=== PATIENT | female | born 1950 | race Caucasian/White ===

== ENCOUNTER 2016-05-13 06:45 | Inpatient (IN) ==
--- NOTE | 2016-05-10 20:28 | Discharge Summary ---
<Camila Lemus Vasiliy - Last Filed: 05/13/16 08:46> - Discharge Diagnosis (1) Arthritis of knee, left Priority: Primary Status: Acute (2) GERD (gastroesophageal reflux disease) Priority: Secondary Status: Chronic Qualifiers: Esophagitis presence: esophagitis presence not specified Qualified Code(s) : K21.9 - Gastro-esophageal reflux disease without esophagitis (3) Obesity Priority: Secondary Status: Chronic Qualifiers: Obesity type: unspecified obesity type Obesity severity: morbid Qualified Code(s): E66.01 - Morbid (severe) obesity due to excess calories - Discharge Medications Home Medications: OxyCODONE Immed Rel [Roxicodone 5 MG] 5 - 10 mg PO Q6HR PRN #40 tablet 05/12/16 [Rx] Aspirin Enteric Coated [Aspirin EC] 325 mg PO DAILY #21 tablet.dr 05/13/16 [Rx] Duloxetine [Cymbalta] 20 mg PO HS 05/13/16 [History] Metoclopramide [Reglan] 10 mg PO TID 05/13/16 [History] Mirabegron [Myrbetriq] 25 mg PO DAILY 05/13/16 [History] Multivits Min/Iron/FA/Herb#186 [Hair, Skin & Nails Caplet] 1 each PO DAILY 05/13 [History] Nortriptyline [Pamelor] 50 mg PO HS 05/13/16 [History] Omeprazole [PriLOSEC] 40 mg PO DAILY 05/13/16 [History] Solifenacin Succinate [Vesicare] 10 mg PO DAILY 05/13/16 [History] Trazodone HCl 100 mg PO HS 05/13/16 [History] Allergies/Adverse Reactions: Allergies No Known Allergies Allergy (Verified 05/13/16 08:16) Primary care physician: Katerin Langley, - Patient Status Disposition: Transfer Inpatient Rehab Fac Condition: Good - Discharge Instructions Follow Up With: Katerin Langley MD [Primary Care Provider] - - Hospital Course Hospital course: Ms. Toussaint is a 66 year old female - Time Spent with Patient Total time spent providing and/or coordinating discharge services: <Leonard Kumar - Last Filed: 05/15/16 06:47> Date of Encounter: 05/15/16 Time of Encounter: 06:47 - Discharge Diagnosis (1) Arthritis of knee, left Priority: Primary Status: Acute (2) GERD (gastroesophageal reflux disease) Priority: Secondary Status: Chronic Qualifiers: Esophagitis presence: esophagitis presence not specified Qualified Code(s) : K21.9 - Gastro-esophageal reflux disease without esophagitis (3) Obesity Priority: Secondary Status: Chronic Qualifiers: Obesity type: unspecified obesity type Obesity severity: morbid Qualified Code(s): E66.01 - Morbid (severe) obesity due to excess calories Primary care physician: Katerin Langley, - Patient Status Functional capacity at discharge: uses cane/walker Overall status at discharge: patient is progressing back to baseline - Hospital Course Hospital course: Ms. Toussaint is a 66 year old female The patient had an uneventful postoperative course. They received antibiotics and physical therapy and were discharged in stable condition. There will follow -up in the office in 2 weeks. Patient will utilize brace which will be changed today before discharge to provide stability. Aspirin DVT prophylaxis - Time Spent with Patient Total time spent providing and/or coordinating discharge services:
[2016-05-13] MEDS ORDERED: Famotidine 20 MG/2 ML VIAL IVP ONE (07:11)
--- NOTE | 2016-05-13 07:24 | Anesthesia Evaluation PreOp ---
Date of Encounter: 05/13/16 Time of Encounter: 07:20 - Past History Planned Operation: Left TKA Cardiac History: Denies any Significant Hx Pulmonary History: Denies Any Significant HX NEWS ASSISTANT History: Denies Any Significant HX Other Medical History: GERD, Other (Morbid Obesity) Anesthesia History: No Prior Anesthetic Complications : No Alcohol Use: none Drug use: none Medications and Allergies Aspirin Enteric Coated [Aspirin EC] 325 mg PO DAILY #21 tablet. 05/12/16 [Rx] OxyCODONE Immed Rel [Roxicodone 5 MG] 5 - 10 mg PO Q6HR PRN #40 tablet 05/12/16 [Rx] Tramadol HCl [Ultram] 50 mg PO QID PRN #40 tab 05/12/16 [Rx] Allergies acetaminophen [From Percocet] Adverse Reaction (Unverified 04/30/16 09:33) See Comments alendronate sodium [From Fosamax] Adverse Reaction (Unverified 04/30/16 09:33) See Comments hydrocodone [From Vicodin] Adverse Reaction (Unverified 04/30/16 09:33) See Comments Oxycodone [From Percocet] Adverse Reaction (Unverified 04/30/16 09:33) See Comments - Meds/Allergy Pre-op Review Medications Reviewed: Yes Allergies Reviewed: Yes Beta Blockers on Current Med List: No Anesthesia Results - Labs Laboratory Tests 04/30/16 04/30/16 04/30/16 09:34 09:34 09:34 Hgb 13.5 Hct 39.8 Plt Count 253 PT 11.1 INR 1.0 APTT 29.8 Sodium 138 Potassium 4.3 BUN 14 Creatinine 0.97 - Imaging EKG: pending Anesthesia Exam O2 Sat Height 1.57 m Height 1.57 m Weight 137.892 kg Weight 137.892 kg O2 Sat by Pulse Oximetry 95 Vital Signs Temp Pulse Resp BP Pulse Ox 98.1 F 102 16 128/82 95 05/13/16 07:09 05/13/16 07:09 05/13/16 07:09 05/13/16 07:09 05/13/16 07:09 Height: 5'2 Weight: 304 lbs NPO (# of Hours): MN Pain Scale: 0 - HEENT Pupil (Motor): Pupils equal, EOMI Mallampati: III Teeth: Edentulous Oral Opening: Less than or equal to 3 - NEWS ASSISTANT LOC: Oriented NEWS ASSISTANT Motor: Normal RUE, Normal LUE, Normal RLE, Normal LLE, Normal Face NEWS ASSISTANT Sensory: Normal: RUE, LUE, RLE, LLE, Face - Cardiac Rhythm: Regular Murmur: None JVD: No Carotid Bruit: No - Pulmonary Breath Sounds: bilateral Clear Respiratory Effort: Symmetrical Anesthesia Assess/Plan ASA Score: 3 (MO Gerd) Modified [place] Scale for Level of Consciousness: Cooperative, oriented, and tranquil Anesthetic Plan: General, Regional Monitoring Plan: Standard Monitors Recovery Plan: PACU (Discussed GA and RA, agrees to proceed)
[2016-05-13] MEDS ORDERED: *HR* FentaNYL (PF) 100 MCG/2 ML VIAL ONE ×2 (07:37→09:30)
[2016-05-13] MEDS ORDERED: Lidocaine -MPF 2% 2 ML VIAL ONE (07:37)
[2016-05-13] MEDS ORDERED: *HR* Propofol 200 MG/20 ML VIAL IVP ONE (07:37)
[2016-05-13] MEDS ORDERED: *HR* Midazolam HCl 2 MG/2 ML VIAL ONE (07:37)
[2016-05-13] MEDS ORDERED: Lidocaine 1% 20 ML MDV ID ONE (07:38)
[2016-05-13] MEDS ORDERED: CeFAZolin Pre 3,000 MG/100 ML 3,000 MG/100 ML BAG IVPB ONE (07:38)
[2016-05-13] MEDS: Ringers Solution, Lactated 1,000 ML IVC SCH ×2 (07:50→09:59)
[2016-05-13] MEDS ORDERED: Bupivacaine/Clonidine Syringe 1 EACH SYRINGE ONE (07:54)
--- NOTE | 2016-05-13 07:55 | History & Physical Report ---
Date of Encounter: 05/13/16 Time of Encounter: 07:55 24 Hour HP Update - Instructions Instructions: If the History and Physical is less than 30 days old and was completed prior to A.M. admission and or procedure and has NOT been updated on calendar day of procedure please complete this update prior to performing procedure. - Update Patient reports changes in Medical Condition: No Changes in assessment/condition: No Changes in Medication: No Preop tests/diagnostics Reviewed: Yes Surgery Remains Indicated: Yes Consent for Planned Operative Procedure(s) Verified: Yes - Pre-Operative Checklist Preoperative Checklist Indicated: No Prophylactic Antibiotic Ordered: Yes Is VTE Prophylaxis Indicated?: Yes
[2016-05-13] MEDS ORDERED: ROPIVACAINE HCL/PF 0.5% 30 ML VIAL ONE (08:21)
[2016-05-13] MEDS ORDERED: Tetracaine/PF 20 MG/2 ML AMPUL SPINA ONE (08:21)
--- NOTE | 2016-05-13 09:04 | Anesthesia Procedures ---
Date of Encounter: 05/13/16 Time of Encounter: 07:20 Procedures: Anesthesia - Nerve Block Procedure Date: 05/13/16 Time: 08:35 Pre-op Diagnosis: Left Knee OA Surgical Procedure: Left TKA Checklist: Correct Patient Identifier Correct side: Left Blood Thinner: No Monitor Applied: EKG, BP, Pulse Oximetry Supplemental Oxygen via Nasal Cannula (L/min): 2 Sedation: Versed (mg): 2 Sedation: Fentanyl (mcg): 100 Indication: Post Op Analgesia Block Type: Femoral, Other (IPACK) Catheter placed: No Depth at skin (cm): 4 Sterile Technique: Yes Ultrasound used: Yes Anatomy identified: Yes Visual spread of Local: Yes Neuro Stimulation: Yes Nerve Stimulator Range: >0.4 - 0.6 mA Blood on Needle Aspiration: No Smooth Injection of Local: Yes Pain with Injection of Local: No Prep: Chlorhexadine Needle: 22 x 50 mm Stimuplex Local: Tetracaine (40 mg), Ropivacaine (0.5%) Volume (cc): 30 Number of Attempts: 1 Complications: None/effective block Vitals: Vital Signs/O2 Sat/Glucose, Most Current Temp Pulse Resp BP Pulse Ox 05/13/16 08:54 86 109/69 95 05/13/16 08:34 87 116/77 97 05/13/16 07:09 98.1 F 102 16 128/82 95
[2016-05-13] MEDS ORDERED: Ketorolac 30 MG/ML VIAL ONE (09:47)
[2016-05-13] MEDS ORDERED: Dexamethasone 4 MG/ML VIAL ONE (09:49)
--- NOTE | 2016-05-13 10:06 | Orthopedic Operative Note ---
Date of procedure: 05/13/16 Pre-op diagnosis: left knee arthritis Post-op diagnosis: same Procedure: Procedure: Leftt Total knee replacement Estimated blood loss: 300 cc Hardware: Arthrex Femur: 4 Tibia: 4 100x14 PS insert: 20 Patella:34 Exam Under anesthesia: Full flexion full extension no instability Procedural Notes: Grade 4 arthritic changes medial and patellofemoral joint Operative procedure: The patient was brought to the operating room and placed on the operating room table. After general anesthesia was administered the operative knee was examined. Findings were noted in the exam under anesthesia. The operative extremity was prepped and draped in sterile surgical fashion. The patient received IV antibiotics prior to skin incision. A standard midline incision was made centered over the patella. The incision was made through the skin and subcutaneous tissue. A medial parapatellar tendon approach was performed. Care was taken to preserve tissue along the medial aspect of the patella. And to protect the patella tendon. The deep MCL was released off the medial tibia. The infra patella fat pad was excised. Knee was brought into flexion. The entry hole was made for the intramedullary femoral guide. The guide was seated in 6 degrees of valgus. Anterior cut was made followed by the distal cut. The ACL the PCL the medial and the lateral menisci were excised. The tibia was subluxed forward. The entry hole was made for the intramedullary tibial guide. Guide was seated to resect 2 mm off the more abnormal side. The knee was brought into flexion the distal femur was sized 4. The femoral guide was seated , the anterior cut was made followed by the posterior condylar cut, followed by the chamfer cuts. The finishing guide was seated the box cut was made and the lug holes were drilled. The tibia was sized 4, the tibial tray was seated and prepared with the large drill followed by the fin cutter follow by a reaming process [id number]. Trial reduction revealed full extension no varus valgus instability with the appropriate 20 PS Maday. The patella was everted and cut was made at the level of the insertion of the quadriceps and patella tendon. The patella was sized 34 the guide was seated and the lug holes are drilled. Trial reduction revealed excellent patella tracking. All trial components were removed all bony surfaces were irrigated. The tibia was cemented first followed by the femur. 20 PS Maday was seated and the knee was brought into full extension. The patella was cemented and held in place with the patellar holding clamp. After the cement had hardened, the knee sat for 2 minutes with a Betadine saline solution. The knee was then irrigated out with 2 L of pulse irrigation. The extensor mechanism was closed with #2 FiberWire suture and #2 PDS suture. The subcutaneous tissue was then irrigated and closed deep with #1 PDS suture superficially with 0 PDS suture and skin was closed with skin liz. The patient was then placed in a sterile dressing and a postoperative brace extubated and transferred to recovery room in stable condition. Anesthesia: GETA Surgeon: Leonard Kumar Belt And Link Assembly Supervisor: Camila Lmeus Condition: stable Disposition: PACU
[2016-05-13] MEDS: *HR* FentaNYL (PF) 100 MCG/2 ML VIAL IVP PRN ×3 (10:50→11:25)
[2016-05-13 11:19] LABS: Hematocrit 36.9 % (35.3-44.9); Hemoglobin 12.1 g/dL (11.5-15.4)
--- NOTE | 2016-05-13 11:52 | Anesthesia Evaluation Post Op ---
Date of Encounter: 05/13/16 Time of Encounter: 11:30 - Vital Signs Vital Signs: Vital Signs/O2 Sat/Glucose, Most Current Temp Pulse Resp BP Pulse Ox 05/13/16 11:42 85 16 122/80 94 L 05/13/16 11:32 97.7 F 84 16 125/82 93 L 05/13/16 11:22 84 16 119/77 92 L 05/13/16 11:12 83 16 127/88 93 L 05/13/16 11:02 97.8 F 84 16 128/83 92 L 05/13/16 10:52 86 16 119/86 91 L 05/13/16 10:42 80 20 119/80 95 05/13/16 10:32 97.6 F 80 22 130/87 97 05/13/16 08:54 86 109/69 95 05/13/16 08:34 87 116/77 97 - Lungs Lungs: Clear Ascult./Percussion - Airway Airway: Non-obstructed - Cardiovascular Regular Rate - Mental Status Mental Status: Alert & Oriented, Answers Appropriately - Nausea Vomiting Nausea Vomiting: Not Present - Hydration Hydration: NPO - Discharge PostOp Status: Transfer Patient to floor
[2016-05-13] MEDS ORDERED: *HR* HYDROmorphone (PF) 1 MG/ML SYRINGE IVP PRN (11:55)
[2016-05-13] MEDS ORDERED: Ringers Solution, Lactated 1,000 ML IVC SCH (11:55)
[2016-05-13] MEDS ORDERED: MOM Conc 10 ML UD.LIQ PO PRN (11:55)
[2016-05-13] MEDS ORDERED: Naloxone 0.4 MG/ML INJ IVP PRN (11:55)
[2016-05-13] MEDS ORDERED: Sennosides 8.6 MG TABLET PO PRN (11:55)
[2016-05-13] MEDS ORDERED: Ondansetron 4 MG/2 ML VIAL IVP PRN (11:55)
[2016-05-13] MEDS ORDERED: Temazepam 15 MG CAPSULE PO PRN (11:55)
[2016-05-13] MEDS: ceFAZolin 2,000 MG in D5% in Water 100 ML IVPB SCH (16:27)
[2016-05-13] MEDS ORDERED: *HR* Enoxaparin 30 MG/0.3 ML SYRINGE SQ SCH (18:00)
[2016-05-13] MEDS: *HR* Enoxaparin 30 MG/0.3 ML SYRINGE SQ SCH (18:12)
[2016-05-13] MEDS: *HR* OxyCODONE Immed Rel 5 MG TABLET PO PRN (21:40)
[2016-05-13] MEDS: traZODone 50 MG TABLET PO SCH (21:41)
[2016-05-14] MEDS: ceFAZolin 2,000 MG in D5% in Water 100 ML IVPB SCH (00:07)
[2016-05-14] MEDS: *HR* OxyCODONE Immed Rel 5 MG TABLET PO PRN ×3 (03:55→20:07)
[2016-05-14] MEDS: *HR* Enoxaparin 30 MG/0.3 ML SYRINGE SQ SCH ×2 (06:14→18:52)
--- NOTE | 2016-05-14 06:38 | Orthopedics Progress Note ---
Date of Encounter: 05/14/16 Time of Encounter: 06:38 - Assessment and Plan (1) Arthritis of knee, left Current Visit: Yes Status: Acute (2) GERD (gastroesophageal reflux disease) Current Visit: Yes Status: Chronic Qualifiers: Esophagitis presence: esophagitis presence not specified Qualified Code(s) : K21.9 - Gastro-esophageal reflux disease without esophagitis (3) Obesity Current Visit: Yes Status: Chronic Qualifiers: Obesity type: unspecified obesity type Obesity severity: morbid Qualified Code(s): E66.01 - Morbid (severe) obesity due to excess calories Subjective Interval history: pt doing well no complaints afvss operative extremity NVI dressing c/d/i calves nt continue postop care Hb 12.1 Objective Vital signs: Vital Signs Temp Pulse Resp BP Pulse Ox 05/14/16 04:00 97.8 F 103 16 97/65 95 05/14/16 00:42 98.9 F 108 20 89/55 95 05/13/16 19:27 98.4 F 108 16 110/79 93 L 05/13/16 15:28 97.6 F 109 14 111/81 93 L 05/13/16 15:00 97.9 F 97 17 115/80 95 05/13/16 14:05 97.6 F 99 18 113/77 95 05/13/16 13:00 97.6 F 89 17 112/76 95 05/13/16 12:32 97.9 F 86 16 104/67 96 05/13/16 12:06 98.0 F 83 15 109/62 95 05/13/16 12:00 98.0 F 83 15 109/62 95 05/13/16 11:42 85 16 122/80 94 L 05/13/16 11:32 97.7 F 84 16 125/82 93 L 05/13/16 11:22 84 16 119/77 92 L 05/13/16 11:12 83 16 127/88 93 L 05/13/16 11:02 97.8 F 84 16 128/83 92 L 05/13/16 10:52 86 16 119/86 91 L 05/13/16 10:42 80 20 119/80 95 05/13/16 10:32 97.6 F 80 22 130/87 97 05/13/16 08:54 86 109/69 95 05/13/16 08:34 87 116/77 97 05/13/16 07:09 98.1 F 102 16 128/82 95 Intake and Output 05/13/16 05/13/16 05/14/16 15:59 23:59 07:59 Intake Total 1600 / 1600 340 / 340 100 / 100 Output Total 200 / 200 200 / 200 Balance 1400 / 1400 140 / 140 100 / 100 Intake: IV Fluids 1600 / 1600 100 / 100 100 / 100 Lactated Ringers 1,000 ML 1500 / 1500 @ 25 mls/hr IVC .Q24H ERIC Rx#:[id number] Ancef 2,000 MG In 100 / 100 100 / 100 Dextrose 5% 100 ML @ 200 mls/hr IVPB Q8H EIRC Rx#: [id number] Ancef Premix 3,000 MG/100 100 / 100 ML 3,000 mg In 100 ml @ 200 mls/hr IVPB PREOP ONE Rx#:[id number] Oral 240 / 240 Output: Urine 200 / 200 Estimated Blood Loss 200 / 200 Other: Meal Dinner Percent of Meal Consumed 100% # Voids 1 - Labs CBC & BMP: 05/13/16 10:57 - VTE Documentation of Mechanical Device: Venous foot pump, device Consult Discharge Plan - Plan Referrals: Katerin Langley MD [Primary Care Provider] -
[2016-05-14 06:47] LABS: Hematocrit 32.5 % (35.3-44.9); Hemoglobin 10.6 g/dL (11.5-15.4)
[2016-05-14 06:57] LABS: BUN/Creatinine Ratio 16 (6-26); Blood Urea Nitrogen 14 mg/dL (7-20); Calcium 8.1 mg/dL (8.6-10.8); Carbon Dioxide 21 mEq/L (19-29); Chloride 106 mEq/L (98-109); Glucose 133 mg/dL (70-99); Osmolality,Calculated 286 (280-300); Potassium 3.8 mEq/L (3.5-4.5); Sodium 137 mEq/L (136-145); eGFR For African Americans > 60 (> 60); eGFR For Non-African Americans > 60 (> 60)
[2016-05-14] MEDS: Multivit/Ca/Min/Fe/FA 1 TAB TABLET PO SCH (09:05)
[2016-05-14] MEDS: (Mirabegron [Myrbetriq] 25 MG) PO SCH (09:06)
--- NOTE | 2016-05-14 12:17 | Electrocardiograph Report ---
[employer] Test Date: 2016-05-13 Pat Name: Ellen Toussaint Department: 106 Room: [facility] Gender: F Casino Floorperson: : 1950 Requested By: Darwin Clark Order Number: [id number] Reading MD: Ronaldo Carey DO Measurements Intervals [place] Rate: 91 P: 68 KS: 169 QRS: -23 QRSD: 93 T: 18 QT: 366 QTc: 414 Interpretive Statements SINUS RHYTHM BORDERLINE LEFT AXIS DEVIATION MODERATE VOLTAGE CRITERIA FOR LVH, CONSIDER NORMAL VARIANT Electronically Signed On 05-14-2016 12:15:49 EDT by Ronaldo Carey DO
[2016-05-14] MEDS: traZODone 50 MG TABLET PO SCH (20:08)
[2016-05-15] MEDS: *HR* Enoxaparin 30 MG/0.3 ML SYRINGE SQ SCH ×2 (05:54→17:49)
[2016-05-15] MEDS: *HR* OxyCODONE Immed Rel 5 MG TABLET PO PRN ×3 (05:55→21:24)
--- NOTE | 2016-05-15 06:48 | Orthopedics Progress Note ---
Date of Encounter: 05/15/16 Time of Encounter: 06:47 - Assessment and Plan (1) Arthritis of knee, left Current Visit: Yes Status: Acute (2) GERD (gastroesophageal reflux disease) Current Visit: Yes Status: Chronic Qualifiers: Esophagitis presence: esophagitis presence not specified Qualified Code(s) : K21.9 - Gastro-esophageal reflux disease without esophagitis (3) Obesity Current Visit: Yes Status: Chronic Qualifiers: Obesity type: unspecified obesity type Obesity severity: morbid Qualified Code(s): E66.01 - Morbid (severe) obesity due to excess calories Subjective Interval history: pt doing well no complaints afvss operative extremity NVI dressing c/d/i calves tender continue postop care obtained Doppler before discharge Discharged today Objective Vital signs: Vital Signs Temp Pulse Resp BP Pulse Ox 05/15/16 04:00 98.3 F 107 17 130/85 92 L 05/15/16 00:00 98.4 F 116 18 133/80 92 L 05/14/16 20:13 97.9 F 96 18 135/87 94 L 05/14/16 14:49 98.4 F 89 18 129/77 93 L 05/14/16 11:21 98.2 F 107 18 114/75 96 Intake and Output 05/14/16 05/14/16 05/15/16 15:59 23:59 07:59 Intake Total 700 / 700 400 / 400 Output Total 300 / 300 325 / 325 Balance 400 / 400 75 / 75 Intake: Oral 700 / 700 400 / 400 Output: Urine 300 / 300 325 / 325 Other: Meal Lunch Dinner Percent of Meal Consumed 95% 10% # Voids 1 - Labs CBC & BMP: 05/14/16 06:02 05/14/16 06:02 Labs: Abnormal lab results Hgb 10.6 g/dL (11.5-15.4) L D 05/14/16 06:02 Hct 32.5 % (35.3-44.9) L 05/14/16 06:02 Glucose 133 mg/dL (70-99) H 05/14/16 06:02 Calcium 8.1 mg/dL (8.6-10.8) L 05/14/16 06:02 - VTE Documentation of Mechanical Device: Venous foot pump, device Consult Discharge Plan - Plan Referrals: Katerin Langley MD [Primary Care Provider] -
[2016-05-15 06:56] LABS: Hematocrit 30.5 % (35.3-44.9); Hemoglobin 10.2 g/dL (11.5-15.4)
[2016-05-15 07:10] LABS: BUN/Creatinine Ratio 14 (6-26); Blood Urea Nitrogen 10 mg/dL (7-20); Carbon Dioxide 22 mEq/L (19-29); Chloride 104 mEq/L (98-109); Glucose 153 mg/dL (70-99); Osmolality,Calculated 280 (280-300); Potassium 3.5 mEq/L (3.5-4.5); Sodium 134 mEq/L (136-145); eGFR For African Americans > 60 (> 60); eGFR For Non-African Americans > 60 (> 60)
[2016-05-15 07:28] LABS: Calcium 8.4 mg/dL (8.6-10.8)
[2016-05-15] MEDS: Multivit/Ca/Min/Fe/FA 1 TAB TABLET PO SCH (08:54)
[2016-05-15] MEDS: (Mirabegron [Myrbetriq] 25 MG) PO SCH (08:54)
[2016-05-15 20:25] VITALS: BP 126/79
[2016-05-15] MEDS: traZODone 50 MG TABLET PO SCH (21:25)
--- NOTE | 2016-05-16 06:48 | Venous Imaging Report ---
LE Venous Duplex Patient Name:Ellen Toussaint Order Number:[id number] Procedure Date:05/15/2016 Date:1950ge:66 yrs Gender:Female Location:[facility] Room #: 3NE24 Route Agent:Tori Bello RDCS Referring MD:Leonard Kumar MD shipping clerk packing:Katerin Langley MD Reading MD:Jonathan Voss MD Primary Indications:Calf Tenderness Secondary Indications: Risk Factors Yes/No Recent Surgery Yes Impressions: Normal left lower extremity deep and superficial venous exam. Normal contralateral common femoral vein. Recommendations: Preliminary given to Pt RN, Dayron. Findings Venous Duplex Results: Right: Venous imaging of the lower extremity reveals full patency and normal vessel compressibility of the right common femoral. Doppler signals in the evaluated veins were normal. Left: Venous imaging of the lower extremity reveals full patency and normal vessel compressibility of the left distal iliac, left common femoral, left superficial femoral, left popliteal, left posterior tibial, left peroneal, left great saphenous and left lesser saphenous. Doppler signals in the evaluated veins were normal. Prior Study: No prior study available for comparison. Lower Extremity Venous Duplex Side Vein Compress Spontaneous Flow Augment Diameter (cm) Depth (cm) Left Distal Iliac Normal Yes Phasic Yes Left Common Femoral Normal Yes Phasic Yes Left Superficial Femoral Normal Yes Phasic Yes Left Popliteal Normal Yes Phasic Yes Left Posterior Tibial Normal Yes Phasic Yes Left Peroneal Normal Yes Phasic Yes Left Great Saphenous Normal Yes Phasic Yes Left Lesser Saphenous Normal Yes Phasic Yes Right Common Femoral Normal Yes Phasic Yes Updated by Jonathan Voss MD on 05/16/2016 6:44:02 AM electronically signed on 05/16/2016 6:44:36 AM with status of Final
== END 2016-05-15 22:15 | DRG 302 ==
LOC: SAMDAY 06:45 → 3NENU 11:48
PROVIDERS: ADMIT Orthopaedic Surgery; ATTEND Orthopaedic Surgery

== ENCOUNTER 2019-04-23 13:47 | Inpatient (IN) ==
[2019-04-23] MEDS ORDERED: Ethanol\\Acetic Acid\\Na Ace\\Ben 1,000 ML IRRIG.SOLN IR ONE (16:43)
[2019-04-23] MEDS ORDERED: *HR* FentaNYL (PF) 100 MCG/2 ML VIAL IVP ONE (16:43)
[2019-04-23] MEDS ORDERED: *HR* HYDROmorphone (PF) 1 MG/ML SYRINGE IVP ONE (16:59)
[2019-04-23] MEDS ORDERED: Dexamethasone 4 MG/ML VIAL ONE (17:25)
[2019-04-23] MEDS ORDERED: *HR* Propofol 200 MG/20 ML VIAL IVP ONE (17:25)
[2019-04-23] MEDS ORDERED: *HR* FentaNYL (PF) 100 MCG/2 ML VIAL ONE ×3 (17:25→18:46)
[2019-04-23] MEDS ORDERED: Ondansetron 4 MG/2 ML VIAL ONE (17:25)
[2019-04-23] MEDS ORDERED: *HR* Midazolam HCl 2 MG/2 ML VIAL ONE (17:25)
[2019-04-23] MEDS ORDERED: Lidocaine -MPF 2% 2 ML VIAL ONE (17:25)
[2019-04-23] MEDS ORDERED: ceFAZolin 2,000 MG in Water for inj. (sterile) 20 ML IVP ONE (17:31)
[2019-04-23] MEDS ORDERED: CeFAZolin Syr 3,000MG/30 ML 3,000 MG/30 ML SYRINGE IVPB ONE (17:32)
[2019-04-23] MEDS ORDERED: Ondansetron 4 MG/2 ML VIAL IVP PRN ×3 (17:37→21:13)
[2019-04-23] MEDS ORDERED: *HR* Labetalol 20 MG/4 ML SYRINGE IVP PRN ×2 (17:37→21:13)
[2019-04-23] MEDS ORDERED: *HR* Promethazine 25 MG/ML VIAL IVP PRN ×3 (17:37→21:13)
[2019-04-23] MEDS ORDERED: *HR* HYDROmorphone (PF) 1 MG/ML SYRINGE IVP PRN ×2 (17:37→21:13)
[2019-04-23] MEDS ORDERED: *HR* Succinylcholine 200 MG/10 ML VIAL IVP ONE (17:43)
[2019-04-23] MEDS ORDERED: *HR* Rocuronium Bromide 50 MG/5 ML VIAL ONE (17:43)
[2019-04-23] MEDS ORDERED: Lidocaine HCL 4 ML Topical Solution (Laryng-O-Jet Kit Sterile Pak) TP ONE (17:45)
[2019-04-23] MEDS ORDERED: Naloxone 0.4 MG/ML INJ IVP PRN ×3 (17:48→21:13)
[2019-04-23 17:52] LABS: Bilirubin,Urine Negative (Negative); Blood,Urine Negative (Negative); Clarity,Urine Cloudy (Clear); Color,Urine Yellow (Yellow); Glucose,Urine (UA) Normal (Normal); Ketones,Urine Negative (Negative); Leukocyte Esterase,Urine Large (Negative); Nitrite,Urine Negative (Negative); PH,Urine 6.5 pH Units (5.0-8.0); Protein,Urine Negative (Neg-Trace); Specific Gravity,Urine 1.017 (1.010-1.025); Urobilinogen,Urine Normal (Normal)
[2019-04-23] MEDS ORDERED: Albuterol 2.5 MG/3 ML NEBULIZER IH PRN ×2 (17:56→21:13)
[2019-04-23 17:57] LABS: Bacteria,Urine Many per hpf (None-Few); Hyaline Casts,Urine None Seen per lpf (None-Few); RBC,Urine 0-3 per hpf (0-3); Squamous Epithelial Cell,Urine None Seen per lpf (None-Few); WBC,Urine TNTC per hpf (0-3)
[2019-04-23] MEDS ORDERED: Ipratropium/Albuterol Neb 3 ML ONE (19:52)
[2019-04-23] MEDS ORDERED: Ipratropium/Albuterol Neb 3 ML IH ONE (19:53)
[2019-04-23] MEDS ORDERED: Ringers Solution, Lactated 1,000 ML ONE (20:29)
[2019-04-23 20:30] LABS: Hematocrit 38.2 % (35.3-44.9); Hemoglobin 12.8 g/dL (11.5-15.4)
[2019-04-23] MEDS ORDERED: traZODone 50 MG TABLET PO SCH (21:00)
[2019-04-23] MEDS ORDERED: MOM Conc 10 ML UD.LIQ PO PRN (21:13)
[2019-04-23] MEDS ORDERED: Sennosides 8.6 MG TABLET PO PRN (21:13)
[2019-04-23] MEDS ORDERED: Dextrose Gel 15 GM/37.5 ML TUBE PO PRN ×2 (21:13)
[2019-04-23] MEDS ORDERED: D5% in Water 1,000 ML IVC PRN (21:13)
[2019-04-23] MEDS ORDERED: *HR* Dextrose 50 % in Water (Syg) 50 ML SYRINGE IVP PRN (21:13)
[2019-04-23] MEDS ORDERED: HYDROcodone BIT/Homatropine 5 MG TABLET PO PRN (21:13)
[2019-04-23 22:47] LABS: Basophils % 0.2 %; Hematocrit 38.5 % (35.3-44.9); Hemoglobin 12.8 g/dL (11.5-15.4); Immature Granulocytes % 0.9 % (0-4); Lymphocytes # 0.5 K/mcL (0.6-4.6); Lymphocytes % 3.9 %; Mean Corpuscular HGB Conc 33.2 g/dL (31.6-35.5); Mean Corpuscular Hemoglobin 29.6 pg (28.0-33.3); Mean Corpuscular Volume 88.9 fL (83.0-100.0); Monocytes # 0.6 K/mcL (0.0-1.3); Monocytes % 4.5 %; Neutrophils # 12.6 K/mcL (1.6-8.9); Platelet Count 207 K/mcL (140-400); Red Blood Count 4.33 M/mcL (3.82-4.97); Red Cell Distribution Width 13.8 % (11.5-14.5); Segmented Neutrophils % 90.5 %; White Blood Count 13.9 K/mcL (4.3-11.1)
[2019-04-23 23:06] LABS: Alanine Aminotransferase 17 Units/L (7-52); Albumin 3.6 g/dL (3.5-5.7); Albumin/Globulin Ratio 1.4 (1.1-2.2); Alkaline Phosphatase 77 Units/L (34-104); Aspartate Amino Transferase 23 Units/L (13-39); BUN/Creatinine Ratio 20 (6-26); Bilirubin,Total 1.3 mg/dL (0.3-1.0); Blood Urea Nitrogen 12 mg/dL (8-23); Calcium 8.4 mg/dL (8.6-10.3); Carbon Dioxide 20 mEq/L (23-29); Chloride 105 mEq/L (98-107); Globulin 2.6 g/dL (2.4-3.5); Glucose 250 mg/dL (70-105); Osmolality,Calculated 284 (280-300); Potassium 4.1 mEq/L (3.5-5.1); Sodium 133 mEq/L (136-145); Total Protein 6.2 g/dL (6.4-8.9); eGFR For African Americans > 60 (> 60); eGFR For Non-African Americans > 60 (> 60)
[2019-04-23 23:19] LABS: Platelet Estimate Normal (Normal)
[2019-04-23] MEDS: ceFAZolin 3,000 MG in 0.9 % Sodium Chloride 100 ML IVPB SCH (23:24)
[2019-04-23] MEDS: Insulin LISPRO 300 UNITS/3 ML VIAL SQ SCH (23:24)
[2019-04-24] MEDS: *HR* HYDROcodone/Acet 10/325 mg TABLET PO PRN ×2 (00:46→08:30)
[2019-04-24 02:01] LABS: BUN/Creatinine Ratio 17 (6-26); Blood Urea Nitrogen 12 mg/dL (8-23); Calcium 8.4 mg/dL (8.6-10.3); Carbon Dioxide 19 mEq/L (23-29); Chloride 102 mEq/L (98-107); Glucose 255 mg/dL (70-105); Osmolality,Calculated 290 (280-300); Potassium 4.6 mEq/L (3.5-5.1); Sodium 136 mEq/L (136-145); eGFR For African Americans > 60 (> 60); eGFR For Non-African Americans > 60 (> 60)
[2019-04-24 02:48] LABS: Basophils % 0.1 %; Hematocrit 35.3 % (35.3-44.9); Hemoglobin 12.1 g/dL (11.5-15.4); Immature Granulocytes % 0.4 % (0-4); Lymphocytes # 0.7 K/mcL (0.6-4.6); Lymphocytes % 4.4 %; Mean Corpuscular HGB Conc 34.3 g/dL (31.6-35.5); Mean Corpuscular Hemoglobin 30.3 pg (28.0-33.3); Mean Corpuscular Volume 88.3 fL (83.0-100.0); Mean Platelet Volume 8.8 fL (9.4-12.4); Monocytes # 0.9 K/mcL (0.0-1.3); Monocytes % 5.7 %; Neutrophils # 13.3 K/mcL (1.6-8.9); Platelet Count 211 K/mcL (140-400); Red Cell Distribution Width 13.8 % (11.5-14.5); Segmented Neutrophils % 89.4 %; White Blood Count 14.8 K/mcL (4.3-11.1)
[2019-04-24] MEDS: Ringers Solution, Lactated 1,000 ML IVC SCH ×2 (04:26→21:48)
[2019-04-24] MEDS ORDERED: Fluconazole 100 MG TABLET PO ONE (05:25)
[2019-04-24] MEDS ORDERED: 0.9 % Sodium Chloride 500 ML IVC ONE (05:27)
[2019-04-24] MEDS: Multivit/Ca/Min/Fe/FA 1 TAB TABLET PO SCH (08:30)
[2019-04-24] MEDS: Ascorbic Acid 500 MG TABLET PO SCH ×2 (08:32→16:25)
[2019-04-24] MEDS ORDERED: NON-FORMULARY MEDICATION 1 EACH EACH (Mirabegron [Myrbetriq] 25 MG) PO SCH (09:00)
[2019-04-24] MEDS ORDERED: DULOXETINE HCL PO SCH (09:00)
[2019-04-24] MEDS ORDERED: Multivit/Ca/Min/Fe/FA 1 TAB TABLET PO SCH ×2 (09:00)
[2019-04-24] MEDS ORDERED: Aminoglycoside Consult 1 EACH MC ONE (09:33)
[2019-04-24] MEDS: ceFAZolin 3,000 MG in 0.9 % Sodium Chloride 100 ML IVPB SCH (10:36)
[2019-04-24] MEDS: Insulin LISPRO 300 UNITS/3 ML VIAL SQ SCH ×4 (10:36→21:48)
[2019-04-24] MEDS ORDERED: *HR* Enoxaparin 40 MG/0.4 ML SYRINGE SQ ONE (10:45)
[2019-04-24] MEDS ORDERED: *HR* Heparin 5,000 UNIT/ML VIAL SQ SCH (10:45)
[2019-04-24] MEDS: (Mirabegron [Myrbetriq] 25 MG) PO SCH (10:51)
[2019-04-24] MEDS: cefTRIAXone 1,000 MG in Water for inj. (sterile) 10 ML IVP SCH (11:15)
[2019-04-24] MEDS: Aspirin Enteric Coated 81 MG Tablet PO SCH (17:11)
[2019-04-24] MEDS: traZODone 50 MG TABLET PO SCH (21:48)
[2019-04-25 00:51] LABS: BUN/Creatinine Ratio 14 (6-26); Blood Urea Nitrogen 10 mg/dL (8-23); Calcium 8.3 mg/dL (8.6-10.3); Carbon Dioxide 26 mEq/L (23-29); Chloride 108 mEq/L (98-107); Glucose 157 mg/dL (70-105); Osmolality,Calculated 288 (280-300); Potassium 3.5 mEq/L (3.5-5.1); Sodium 138 mEq/L (136-145); eGFR For African Americans > 60 (> 60); eGFR For Non-African Americans > 60 (> 60)
[2019-04-25 00:59] LABS: Basophils % 0.2 %; Eosinophils # 0.1 K/mcL (0.0-0.6); Eosinophils % 0.6 %; Hematocrit 30.8 % (35.3-44.9); Immature Granulocytes % 0.5 % (0-4); Lymphocytes # 1.6 K/mcL (0.6-4.6); Lymphocytes % 19.8 %; Mean Corpuscular HGB Conc 33.1 g/dL (31.6-35.5); Mean Corpuscular Volume 90.6 fL (83.0-100.0); Mean Platelet Volume 9.2 fL (9.4-12.4); Monocytes # 0.9 K/mcL (0.0-1.3); Monocytes % 10.4 %; Neutrophils # 5.7 K/mcL (1.6-8.9); Platelet Count 173 K/mcL (140-400); Red Cell Distribution Width 14.3 % (11.5-14.5); Segmented Neutrophils % 68.5 %; White Blood Count 8.3 K/mcL (4.3-11.1)
[2019-04-25 01:00] LABS: Hemoglobin 10.2 g/dL (11.5-15.4)
[2019-04-25] MEDS: *HR* Enoxaparin 40 MG/0.4 ML SYRINGE SQ SCH (06:23)
[2019-04-25] MEDS: Multivit/Ca/Min/Fe/FA 1 TAB TABLET PO SCH (07:57)
[2019-04-25] MEDS: Ascorbic Acid 500 MG TABLET PO SCH ×2 (07:57→16:25)
[2019-04-25] MEDS: Aspirin Enteric Coated 81 MG Tablet PO SCH (07:57)
[2019-04-25] MEDS: cefTRIAXone 1,000 MG in Water for inj. (sterile) 10 ML IVP SCH (07:58)
[2019-04-25] MEDS: Insulin LISPRO 300 UNITS/3 ML VIAL SQ SCH ×4 (07:58→20:50)
[2019-04-25] MEDS: (Mirabegron [Myrbetriq] 25 MG) PO SCH (07:58)
[2019-04-25] MEDS: *HR* HYDROcodone/Acet 10/325 mg TABLET PO PRN ×2 (08:08→15:15)
[2019-04-25] MEDS: Ringers Solution, Lactated 1,000 ML IVC SCH ×2 (16:26→16:27)
[2019-04-25] MEDS: traZODone 50 MG TABLET PO SCH (20:52)
[2019-04-26] MEDS: Ringers Solution, Lactated 1,000 ML IVC SCH (05:28)
[2019-04-26] MEDS: *HR* Enoxaparin 40 MG/0.4 ML SYRINGE SQ SCH (05:28)
[2019-04-26 05:30] LABS: Basophils % 0.3 %; Eosinophils # 0.2 K/mcL (0.0-0.6); Eosinophils % 2.8 %; Hematocrit 26.5 % (35.3-44.9); Hemoglobin 8.7 g/dL (11.5-15.4); Immature Granulocytes % 0.5 % (0-4); Lymphocytes # 1.3 K/mcL (0.6-4.6); Lymphocytes % 20.7 %; Mean Corpuscular HGB Conc 32.8 g/dL (31.6-35.5); Mean Corpuscular Hemoglobin 30.6 pg (28.0-33.3); Mean Corpuscular Volume 93.3 fL (83.0-100.0); Mean Platelet Volume 9.1 fL (9.4-12.4); Monocytes # 0.6 K/mcL (0.0-1.3); Neutrophils # 4.2 K/mcL (1.6-8.9); Platelet Count 134 K/mcL (140-400); Red Blood Count 2.84 M/mcL (3.82-4.97); Red Cell Distribution Width 14.1 % (11.5-14.5); Segmented Neutrophils % 65.7 %; White Blood Count 6.4 K/mcL (4.3-11.1)
[2019-04-26 05:49] LABS: BUN/Creatinine Ratio 13 (6-26); Blood Urea Nitrogen 8 mg/dL (8-23); Calcium 8.3 mg/dL (8.6-10.3); Carbon Dioxide 29 mEq/L (23-29); Chloride 106 mEq/L (98-107); Glucose 148 mg/dL (70-105); Osmolality,Calculated 289 (280-300); Potassium 3.5 mEq/L (3.5-5.1); Sodium 139 mEq/L (136-145); eGFR For African Americans > 60 (> 60); eGFR For Non-African Americans > 60 (> 60)
[2019-04-26] MEDS: Multivit/Ca/Min/Fe/FA 1 TAB TABLET PO SCH (08:07)
[2019-04-26] MEDS: Aspirin Enteric Coated 81 MG Tablet PO SCH (08:08)
[2019-04-26] MEDS: Ascorbic Acid 500 MG TABLET PO SCH ×2 (08:08→16:39)
[2019-04-26] MEDS: Insulin LISPRO 300 UNITS/3 ML VIAL SQ SCH ×4 (08:11→20:23)
[2019-04-26] MEDS: cefTRIAXone 1,000 MG in Water for inj. (sterile) 10 ML IVP SCH (08:15)
[2019-04-26] MEDS: (Mirabegron [Myrbetriq] 25 MG) PO SCH (12:22)
[2019-04-26] MEDS: *HR* HYDROcodone/Acet 10/325 mg TABLET PO PRN (13:35)
[2019-04-26] MEDS: traZODone 50 MG TABLET PO SCH (21:35)
[2019-04-27 02:58] LABS: Basophils % 0.4 %; Eosinophils # 0.2 K/mcL (0.0-0.6); Eosinophils % 3.8 %; Hematocrit 24.9 % (35.3-44.9); Hemoglobin 8.2 g/dL (11.5-15.4); Immature Granulocytes % 0.5 % (0-4); Lymphocytes # 1.5 K/mcL (0.6-4.6); Lymphocytes % 27.3 %; Mean Corpuscular HGB Conc 32.9 g/dL (31.6-35.5); Mean Corpuscular Hemoglobin 30.3 pg (28.0-33.3); Mean Corpuscular Volume 91.9 fL (83.0-100.0); Mean Platelet Volume 9.4 fL (9.4-12.4); Monocytes # 0.6 K/mcL (0.0-1.3); Monocytes % 10.2 %; Neutrophils # 3.2 K/mcL (1.6-8.9); Platelet Count 156 K/mcL (140-400); Red Blood Count 2.71 M/mcL (3.82-4.97); Red Cell Distribution Width 13.9 % (11.5-14.5); Segmented Neutrophils % 57.8 %; White Blood Count 5.6 K/mcL (4.3-11.1)
[2019-04-27 03:29] LABS: BUN/Creatinine Ratio 13 (6-26); Blood Urea Nitrogen 8 mg/dL (8-23); Calcium 8.4 mg/dL (8.6-10.3); Carbon Dioxide 27 mEq/L (23-29); Chloride 106 mEq/L (98-107); Glucose 134 mg/dL (70-105); Osmolality,Calculated 288 (280-300); Potassium 3.4 mEq/L (3.5-5.1); Sodium 139 mEq/L (136-145); eGFR For African Americans > 60 (> 60); eGFR For Non-African Americans > 60 (> 60)
[2019-04-27] MEDS: *HR* Enoxaparin 40 MG/0.4 ML SYRINGE SQ SCH (05:11)
[2019-04-27] MEDS: (Mirabegron [Myrbetriq] 25 MG) PO SCH (08:29)
[2019-04-27] MEDS: Ascorbic Acid 500 MG TABLET PO SCH ×2 (08:30→15:57)
[2019-04-27] MEDS: Multivit/Ca/Min/Fe/FA 1 TAB TABLET PO SCH (08:30)
[2019-04-27] MEDS: Aspirin Enteric Coated 81 MG Tablet PO SCH (08:30)
[2019-04-27] MEDS: cefTRIAXone 1,000 MG in Water for inj. (sterile) 10 ML IVP SCH (08:31)
[2019-04-27] MEDS: Insulin LISPRO 300 UNITS/3 ML VIAL SQ SCH ×4 (08:36→21:22)
[2019-04-27] MEDS: *HR* HYDROcodone/Acet 10/325 mg TABLET PO PRN (11:35)
[2019-04-27] MEDS: traZODone 50 MG TABLET PO SCH (20:39)
[2019-04-27] MEDS ORDERED: NON-FORMULARY MEDICATION 1 EACH EACH (Trazodone Hcl 150 MG) PO SCH (21:00)
[2019-04-28 04:36] LABS: Hemoglobin 8.9 g/dL (11.5-15.4)
[2019-04-28] MEDS: *HR* Enoxaparin 40 MG/0.4 ML SYRINGE SQ SCH (05:41)
[2019-04-28] MEDS: Insulin LISPRO 300 UNITS/3 ML VIAL SQ SCH ×4 (08:13→22:21)
[2019-04-28] MEDS: cefTRIAXone 1,000 MG in Water for inj. (sterile) 10 ML IVP SCH (08:18)
[2019-04-28] MEDS: Aspirin Enteric Coated 81 MG Tablet PO SCH (08:19)
[2019-04-28] MEDS: Multivit/Ca/Min/Fe/FA 1 TAB TABLET PO SCH (08:19)
[2019-04-28] MEDS: Ascorbic Acid 500 MG TABLET PO SCH ×2 (08:19→17:57)
[2019-04-28] MEDS: (Mirabegron [Myrbetriq] 25 MG) PO SCH (08:19)
[2019-04-28] MEDS: traZODone 50 MG TABLET PO SCH (20:36)
[2019-04-28] MEDS: *HR* HYDROcodone/Acet 10/325 mg TABLET PO PRN (23:53)
[2019-04-29 05:49] LABS: Hematocrit 27.2 % (35.3-44.9); Hemoglobin 8.8 g/dL (11.5-15.4)
[2019-04-29] MEDS: *HR* Enoxaparin 40 MG/0.4 ML SYRINGE SQ SCH (06:37)
[2019-04-29] MEDS: Insulin LISPRO 300 UNITS/3 ML VIAL SQ SCH ×2 (09:57→11:57)
[2019-04-29] MEDS: Aspirin Enteric Coated 81 MG Tablet PO SCH (09:57)
[2019-04-29] MEDS: Multivit/Ca/Min/Fe/FA 1 TAB TABLET PO SCH (09:58)
[2019-04-29] MEDS: (Mirabegron [Myrbetriq] 25 MG) PO SCH (09:58)
[2019-04-29] MEDS: Ascorbic Acid 500 MG TABLET PO SCH (09:58)
[2019-04-29] MEDS: cefTRIAXone 1,000 MG in Water for inj. (sterile) 10 ML IVP SCH (10:06)
[2019-04-29] MEDS ORDERED: Methyl Salicylate/Menthol 57 APPL/57 GM TUBE TP PRN (10:29)
[2019-04-29 11:33] VITALS: BP 130/86
== END 2019-04-29 13:15 | DRG 466 ==
LOC: 3NENU → SUATTDRO 17:30
PROVIDERS: ADMIT Internal Medicine; ATTEND Internal Medicine

== ENCOUNTER 2020-01-10 12:51 | Observation (INO) ==
[2020-01-10] MEDS ORDERED: Naloxone 0.4 MG/ML INJ IVP PRN (16:28)
[2020-01-10] MEDS: Ringers Solution, Lactated 1,000 ML IVC SCH (17:33)
[2020-01-10] MEDS ORDERED: Dextrose Gel 15 GM/37.5 ML TUBE PO PRN ×2 (18:42)
[2020-01-10] MEDS ORDERED: *HR* Dextrose 50 % in Water (Vial) 50 ML VIAL IVP PRN (18:42)
[2020-01-10] MEDS ORDERED: D5% in Water 1,000 ML IVC PRN (18:42)
[2020-01-10] MEDS: *HR* Heparin 5,000 UNIT/ML VIAL SQ SCH (23:08)
[2020-01-11 01:43] LABS: Basophils % 0.5 %; Eosinophils # 0.3 K/mcL (0.0-0.6); Eosinophils % 3.4 %; Hematocrit 42.2 % (35.3-44.9); Hemoglobin 13.5 g/dL (11.5-15.4); Immature Granulocytes % 0.8 % (0-4); Lymphocytes # 1.4 K/mcL (0.6-4.6); Lymphocytes % 18.6 %; Mean Corpuscular Volume 84.4 fL (83.0-100.0); Mean Platelet Volume 8.8 fL (9.4-12.4); Monocytes # 0.8 K/mcL (0.0-1.3); Monocytes % 11.2 %; Neutrophils # 4.9 K/mcL (1.6-8.9); Platelet Count 280 K/mcL (140-400); Red Cell Distribution Width 14.5 % (11.5-14.5); Segmented Neutrophils % 65.5 %; White Blood Count 7.4 K/mcL (4.3-11.1)
[2020-01-11 02:09] LABS: Alanine Aminotransferase 20 Units/L (7-52); Albumin 3.4 g/dL (3.5-5.7); Albumin/Globulin Ratio 1.1 (1.1-2.2); Alkaline Phosphatase 100 Units/L (34-104); Aspartate Amino Transferase 14 Units/L (13-39); BUN/Creatinine Ratio 15 (6-26); Bilirubin,Total 1.1 mg/dL (0.3-1.0); Blood Urea Nitrogen 11 mg/dL (8-23); Calcium 8.6 mg/dL (8.6-10.3); Carbon Dioxide 22 mEq/L (23-29); Chloride 103 mEq/L (98-107); Globulin 3.1 g/dL (2.4-3.5); Glucose 149 mg/dL (70-105); Magnesium 1.6 mg/dL (1.6-2.6); Osmolality,Calculated 284 (280-300); Phosphorous 3.1 mg/dL (2.7-4.5); Potassium 3.3 mEq/L (3.5-5.1); Sodium 136 mEq/L (136-145); Total Protein 6.5 g/dL (6.4-8.9); eGFR For African Americans > 60 (> 60); eGFR For Non-African Americans > 60 (> 60)
[2020-01-11] MEDS: *HR* Heparin 5,000 UNIT/ML VIAL SQ SCH ×3 (05:56→19:55)
[2020-01-11] MEDS: Ringers Solution, Lactated 1,000 ML IVC SCH (05:57)
[2020-01-11] MEDS ORDERED: *HR* Heparin 5,000 UNIT/ML VIAL SQ SCH (06:00)
[2020-01-11] MEDS ORDERED: Potassium Chloride 20 MEQ, Lidocaine 1% 2 ML in 0.9 % Sodium Chloride 250 ML IVPB ONE (09:20)
[2020-01-11] MEDS ORDERED: Tetracaine/Benzocaine/Butamben 1 SPRAY AEROSOL MM ONE (09:59)
[2020-01-11] MEDS ORDERED: Lidocaine Jelly 11 ml Syringe MM ONE (10:07)
[2020-01-11] MEDS: TRAZODONE 50MG TABLET PO SCH ×2 (10:10→21:44)
[2020-01-11] MEDS: Pantoprazole 40 MG VIAL IVP SCH ×3 (10:10→19:55)
[2020-01-11] MEDS ORDERED: *HR* LORazepam 2 MG/ML VIAL IVP ONE (10:22)
[2020-01-11] MEDS ORDERED: Ondansetron 4 MG/2 ML VIAL IVP STA (11:47)
[2020-01-11 12:34] LABS: Bilirubin,Direct 0.2 mg/dL (0.0-0.2); Bilirubin,Indirect 0.7 mg/dL (0.0-1.0); Bilirubin,Total 0.9 mg/dL (0.3-1.0)
[2020-01-11] MEDS ORDERED: Chloraseptic Spray 177 ML BOTTLE MM PRN (17:20)
[2020-01-11] MEDS: Ketorolac 15 MG/ML VIAL IVP PRN (21:57)
[2020-01-12 04:37] LABS: Bacteria,Urine Moderate per hpf (None-Few); Bilirubin,Urine Small (Negative); Blood,Urine Negative (Negative); Calcium Oxalate Crystals,Urine Present; Clarity,Urine Turbid (Clear); Color,Urine Yellow (Yellow); Glucose,Urine (UA) Normal (Normal); Ketones,Urine 60 mg/dL (Negative); Leukocyte Esterase,Urine Large (Negative); Mucus,Urine Few per lpf (None-Few); Nitrite,Urine Negative (Negative); Protein,Urine 30 mg/dL (Neg-Trace); Squamous Epithelial Cell,Urine Few per hpf (None-Few); WBC,Urine 50-100 per hpf (0-3)
[2020-01-12 05:00] LABS: Basophils % 0.5 %; Eosinophils # 0.2 K/mcL (0.0-0.6); Eosinophils % 3.4 %; Hematocrit 38.6 % (35.3-44.9); Hemoglobin 12.5 g/dL (11.5-15.4); Immature Granulocytes % 0.5 % (0-4); Lymphocytes # 1.7 K/mcL (0.6-4.6); Lymphocytes % 26.1 %; Mean Corpuscular HGB Conc 32.4 g/dL (31.6-35.5); Mean Corpuscular Hemoglobin 27.5 pg (28.0-33.3); Mean Corpuscular Volume 84.8 fL (83.0-100.0); Mean Platelet Volume 9.1 fL (9.4-12.4); Monocytes # 0.7 K/mcL (0.0-1.3); Monocytes % 11.3 %; Neutrophils # 3.8 K/mcL (1.6-8.9); Platelet Count 290 K/mcL (140-400); Red Blood Count 4.55 M/mcL (3.82-4.97); Red Cell Distribution Width 14.2 % (11.5-14.5); Segmented Neutrophils % 58.2 %; White Blood Count 6.5 K/mcL (4.3-11.1)
[2020-01-12 05:19] LABS: BUN/Creatinine Ratio 14 (6-26); Blood Urea Nitrogen 10 mg/dL (8-23); Calcium 8.2 mg/dL (8.6-10.3); Carbon Dioxide 24 mEq/L (23-29); Chloride 105 mEq/L (98-107); Glucose 97 mg/dL (70-105); Osmolality,Calculated 285 (280-300); Potassium 3.6 mEq/L (3.5-5.1); Sodium 138 mEq/L (136-145); eGFR For African Americans > 60 (> 60); eGFR For Non-African Americans > 60 (> 60)
[2020-01-12] MEDS: Pantoprazole 40 MG VIAL IVP SCH ×2 (06:31→18:03)
[2020-01-12] MEDS: *HR* Heparin 5,000 UNIT/ML VIAL SQ SCH ×3 (06:35→21:24)
[2020-01-12] MEDS: Ketorolac 15 MG/ML VIAL IVP PRN (08:58)
[2020-01-12] MEDS ORDERED: Ondansetron 4 MG/2 ML VIAL IVP ONE (11:05)
[2020-01-12] MEDS: TRAZODONE 50MG TABLET PO SCH (21:23)
[2020-01-13] MEDS: *HR* Heparin 5,000 UNIT/ML VIAL SQ SCH (05:14)
[2020-01-13] MEDS: Pantoprazole 40 MG VIAL IVP SCH (05:23)
[2020-01-13] MEDS: Ketorolac 15 MG/ML VIAL IVP PRN (05:30)
[2020-01-13] MEDS ORDERED: Methylnaltrexone 12 MG/0.6 ML SYRINGE SQ ONE (06:44)
[2020-01-13 10:36] VITALS: BP 118/77
== END 2020-01-13 13:00 | disposition home or self-care (01) ==
LOC: 3BNU → SUATTDRO 15:35
PROVIDERS: ADMIT Internal Medicine; ATTEND Internal Medicine

== ENCOUNTER 2020-04-18 09:41 | Observation (INO) ==
[2020-04-18 10:43] LABS: Basophils # 0.1 K/mcL (0.0-0.2); Basophils % 0.7 %; Eosinophils # 0.2 K/mcL (0.0-0.6); Eosinophils % 2.7 %; Hematocrit 42.2 % (35.3-44.9); Hemoglobin 13.7 g/dL (11.5-15.4); Immature Granulocytes % 0.1 % (0-4); Lymphocytes # 2.1 K/mcL (0.6-4.6); Lymphocytes % 30.6 %; Mean Corpuscular HGB Conc 32.5 g/dL (31.6-35.5); Mean Corpuscular Hemoglobin 27.5 pg (28.0-33.3); Mean Corpuscular Volume 84.7 fL (83.0-100.0); Mean Platelet Volume 9.4 fL (9.4-12.4); Monocytes # 0.5 K/mcL (0.0-1.3); Monocytes % 6.8 %; Platelet Count 257 K/mcL (140-400); Red Blood Count 4.98 M/mcL (3.82-4.97); Red Cell Distribution Width 14.5 % (11.5-14.5); Segmented Neutrophils % 59.1 %; White Blood Count 6.7 K/mcL (4.3-11.1)
[2020-04-18 10:53] LABS: BUN/Creatinine Ratio 9 (6-26); Blood Urea Nitrogen 8 mg/dL (8-23); Calcium 9.3 mg/dL (8.6-10.3); Carbon Dioxide 25 mEq/L (23-29); Chloride 105 mEq/L (98-107); Glucose 128 mg/dL (70-105); Osmolality,Calculated 286 (280-300); Potassium 3.7 mEq/L (3.5-5.1); Sodium 138 mEq/L (136-145); Troponin I 0.03 ng/mL (< 0.04); eGFR For African Americans > 60 (> 60); eGFR For Non-African Americans > 60 (> 60)
[2020-04-18] MEDS ORDERED: Naloxone 0.4 MG/ML INJ IVP PRN (11:52)
[2020-04-18] MEDS ORDERED: MOM Conc 10 ML UD.LIQ PO PRN (12:32)
[2020-04-18] MEDS ORDERED: Ondansetron ODT 4 MG TAB.RAPDIS SL PRN (12:32)
[2020-04-18] MEDS ORDERED: Mag Hydrox/Al Hydrox/Simeth 30 ML UDC PO PRN (12:32)
[2020-04-18] MEDS ORDERED: Perflutren Lipid Microsphere 1.3 ML in 0.9 % Sodium Chloride 8.7 ML IVP PRN (15:27)
[2020-04-18] MEDS: Aspirin 81 MG TAB.CHEW PO SCH (16:27)
[2020-04-18] MEDS: traZODone 50 MG TABLET PO SCH (21:44)
[2020-04-19 01:24] LABS: Hematocrit 37.8 % (35.3-44.9); Hemoglobin 12.6 g/dL (11.5-15.4); Mean Corpuscular HGB Conc 33.3 g/dL (31.6-35.5); Mean Corpuscular Hemoglobin 28.4 pg (28.0-33.3); Mean Corpuscular Volume 85.1 fL (83.0-100.0); Mean Platelet Volume 9.4 fL (9.4-12.4); Platelet Count 196 K/mcL (140-400); Red Blood Count 4.44 M/mcL (3.82-4.97); Red Cell Distribution Width 14.6 % (11.5-14.5); White Blood Count 5.3 K/mcL (4.3-11.1)
[2020-04-19 01:39] LABS: Alanine Aminotransferase 10 Units/L (7-52); Albumin 3.6 g/dL (3.5-5.7); Albumin/Globulin Ratio 1.3 (1.1-2.2); Alkaline Phosphatase 77 Units/L (34-104); Aspartate Amino Transferase 12 Units/L (13-39); BUN/Creatinine Ratio 9 (6-26); Bilirubin,Total 0.6 mg/dL (0.3-1.0); Blood Urea Nitrogen 7 mg/dL (8-23); Calcium 8.9 mg/dL (8.6-10.3); Carbon Dioxide 24 mEq/L (23-29); Chloride 107 mEq/L (98-107); Globulin 2.7 g/dL (2.4-3.5); Glucose 122 mg/dL (70-105); Osmolality,Calculated 287 (280-300); Potassium 3.5 mEq/L (3.5-5.1); Sodium 139 mEq/L (136-145); Total Protein 6.3 g/dL (6.4-8.9); Troponin I < 0.03 ng/mL (< 0.04); eGFR For African Americans > 60 (> 60); eGFR For Non-African Americans > 60 (> 60)
[2020-04-19 01:41] LABS: Estimated Average Glucose 111 mg/dl; Hemoglobin A1C 5.5 %
[2020-04-19] MEDS: *HR* Enoxaparin 40 MG/0.4 ML SYRINGE SQ SCH (05:04)
[2020-04-19] MEDS ORDERED: Regadenoson 0.4 MG/5 ML SYRINGE IVP ONE (06:22)
[2020-04-19] MEDS ORDERED: MIRABEGRON 25 MG PO SCH (09:00)
[2020-04-19] MEDS ORDERED: SOLIFENACIN SUCCINATE 10 MG PO SCH (09:00)
[2020-04-19] MEDS: Aspirin 81 MG TAB.CHEW PO SCH (11:23)
[2020-04-19] MEDS: traZODone 50 MG TABLET PO SCH (20:02)
[2020-04-20 03:01] LABS: Hematocrit 39.8 % (35.3-44.9); Hemoglobin 12.8 g/dL (11.5-15.4); Mean Corpuscular HGB Conc 32.2 g/dL (31.6-35.5); Mean Corpuscular Hemoglobin 27.8 pg (28.0-33.3); Mean Corpuscular Volume 86.3 fL (83.0-100.0); Mean Platelet Volume 9.4 fL (9.4-12.4); Platelet Count 193 K/mcL (140-400); Red Blood Count 4.61 M/mcL (3.82-4.97); Red Cell Distribution Width 14.6 % (11.5-14.5); White Blood Count 4.5 K/mcL (4.3-11.1)
[2020-04-20 03:19] LABS: BUN/Creatinine Ratio 10 (6-26); Blood Urea Nitrogen 8 mg/dL (8-23); Calcium 8.9 mg/dL (8.6-10.3); Carbon Dioxide 25 mEq/L (23-29); Chloride 108 mEq/L (98-107); Glucose 135 mg/dL (70-105); Osmolality,Calculated 288 (280-300); Potassium 3.7 mEq/L (3.5-5.1); Sodium 139 mEq/L (136-145); eGFR For African Americans > 60 (> 60); eGFR For Non-African Americans > 60 (> 60)
[2020-04-20] MEDS: *HR* Enoxaparin 40 MG/0.4 ML SYRINGE SQ SCH (06:01)
[2020-04-20] MEDS: Aspirin 81 MG TAB.CHEW PO SCH (08:20)
[2020-04-20 11:29] VITALS: BP 101/67
== END 2020-04-20 15:01 | disposition home or self-care (01) ==
LOC: 3BNU 09:41 → EMEROOARM 09:41 → 3BNU 15:04
PROVIDERS: ADMIT Internal Medicine; ATTEND Internal Medicine

== ENCOUNTER 2021-10-26 20:47 | Observation (INO) ==
[2021-10-27] MEDS ORDERED: Melatonin 3 MG TABLET PO PRN (02:33)
[2021-10-27] MEDS ORDERED: Naloxone 0.4 MG/ML INJ IVP PRN (02:33)
[2021-10-27] MEDS ORDERED: *HR* FentaNYL (PF) 100 MCG/2 ML VIAL IVP ONE (03:55)
[2021-10-27] MEDS ORDERED: Ipratropium/Albuterol Neb 3 ML IH PRN (05:19)
[2021-10-27] MEDS ORDERED: D5% in Water 1,000 ML IVC PRN (05:20)
[2021-10-27] MEDS ORDERED: Dextrose Gel 15 GM/37.5 ML TUBE PO PRN ×2 (05:20)
[2021-10-27] MEDS ORDERED: *HR* Dextrose 50 % in Water (Syg) 50 ML SYRINGE IVP PRN (05:20)
[2021-10-27] MEDS ORDERED: 0.9 % Sodium Chloride 1,000 ML IVC SCH (05:30)
[2021-10-27] MEDS: Ondansetron 4 MG/2 ML VIAL IVP PRN (05:32)
[2021-10-27 05:41] LABS: Basophils % 0.4 %; Eosinophils # 0.1 K/mcL (0.0-0.6); Eosinophils % 1.6 %; Hematocrit 40.5 % (35.3-44.9); Hemoglobin 13.7 g/dL (11.5-15.4); Immature Granulocytes % 0.3 % (0-4); Lymphocytes # 1.6 K/mcL (0.6-4.6); Lymphocytes % 20.5 %; Mean Corpuscular HGB Conc 33.8 g/dL (31.6-35.5); Mean Corpuscular Hemoglobin 28.8 pg (28.0-33.3); Mean Corpuscular Volume 85.1 fL (83.0-100.0); Mean Platelet Volume 9.5 fL (9.4-12.4); Monocytes # 0.7 K/mcL (0.0-1.3); Monocytes % 9.6 %; Neutrophils # 5.2 K/mcL (1.6-8.9); Platelet Count 199 K/mcL (140-400); Red Blood Count 4.76 M/mcL (3.82-4.97); Red Cell Distribution Width 13.8 % (11.5-14.5); Segmented Neutrophils % 67.6 %; White Blood Count 7.7 K/mcL (4.3-11.1)
[2021-10-27 05:47] LABS: INR 1.1; Prothrombin Time 12.1 Seconds (9.4-12.1)
[2021-10-27 05:50] LABS: Activated Partial Thrombo Time 30.7 Seconds (26.0-36.0)
[2021-10-27 06:03] LABS: Alanine Aminotransferase 30 Units/L (7-52); Albumin 3.9 g/dL (3.5-5.7); Albumin/Globulin Ratio 1.4 (1.1-2.2); Alkaline Phosphatase 81 Units/L (34-104); Aspartate Amino Transferase 20 Units/L (13-39); BUN/Creatinine Ratio 16 (6-26); Bilirubin,Total 1.2 mg/dL (0.3-1.0); Blood Urea Nitrogen 11 mg/dL (8-23); Calcium 8.9 mg/dL (8.6-10.3); Carbon Dioxide 23 mEq/L (23-29); Chloride 107 mEq/L (98-107); Globulin 2.7 g/dL (2.4-3.5); Glucose 148 mg/dL (70-105); Magnesium 1.6 mg/dL (1.6-2.6); Osmolality,Calculated 290 (280-300); Phosphorous 2.9 mg/dL (2.7-4.5); Potassium 3.4 mEq/L (3.5-5.1); Sodium 139 mEq/L (136-145); Total Protein 6.6 g/dL (6.4-8.9)
[2021-10-27] MEDS: Multivit/Ca/Min/Fe/FA 1 TAB TABLET PO SCH (09:16)
[2021-10-27] MEDS ORDERED: *HR* HYDROmorphone (PF) 1 MG/ML SYRINGE IVP ONE (10:58)
[2021-10-27] MEDS ORDERED: CeFAZolin Syr 2,000MG/20 ML 2,000 MG/20 ML SYRINGE IVPB ONE (12:51)
[2021-10-27] MEDS ORDERED: Ringers Solution, Lactated 1,000 ML IVC SCH (13:00)
[2021-10-27] MEDS ORDERED: *HR* HYDROmorphone PF 0.5 MG/0.5 ML SYRINGE IVP PRN (13:21)
[2021-10-27] MEDS ORDERED: *HR* FentaNYL (PF) 100 MCG/2 ML VIAL ONE ×2 (13:23→14:15)
[2021-10-27] MEDS ORDERED: *HR* Midazolam HCl 2 MG/2 ML VIAL ONE (13:23)
[2021-10-27] MEDS ORDERED: ROPIVACAINE/PF/NS 0.25% 1 EACH SYRINGE INTRAART ONE (13:24)
[2021-10-27] MEDS ORDERED: Ropivacaine/PF 0.5% 30 ML VIAL ONE (13:24)
[2021-10-27] MEDS ORDERED: *HR* Propofol 200 MG/20 ML VIAL IVP ONE (14:15)
[2021-10-27] MEDS ORDERED: Lidocaine -MPF 2% 5 ML VIAL ONE (14:16)
[2021-10-27] MEDS ORDERED: *HR* Succinylcholine 200 MG/10 ML VIAL IVP ONE (14:16)
[2021-10-27] MEDS ORDERED: Ondansetron 4 MG/2 ML VIAL ONE (14:56)
[2021-10-27] MEDS ORDERED: *HR* Rocuronium Bromide 50 MG/5 ML VIAL ONE (15:25)
[2021-10-28] MEDS: CeFAZolin 2,000 MG/120 ML BAG IVPB SCH ×3 (00:28→15:19)
[2021-10-28] MEDS: *HR* Heparin 5,000 UNIT/ML VIAL SQ SCH ×3 (06:10→21:32)
[2021-10-28] MEDS: Multivit/Ca/Min/Fe/FA 1 TAB TABLET PO SCH (07:47)
[2021-10-28] MEDS ORDERED: Aspirin Enteric Coated 81 MG Tablet PO SCH (09:00)
[2021-10-28] MEDS: Aspirin 81 MG TAB.CHEW PO SCH (11:19)
[2021-10-28] MEDS: Ondansetron 4 MG/2 ML VIAL IVP PRN ×2 (11:49→21:33)
[2021-10-29] MEDS ORDERED: *HR* HYDROmorphone (PF) 1 MG/ML SYRINGE IVP ONE (05:46)
[2021-10-29] MEDS: *HR* Heparin 5,000 UNIT/ML VIAL SQ SCH ×3 (06:03→21:26)
[2021-10-29] MEDS: Aspirin 81 MG TAB.CHEW PO SCH (09:52)
[2021-10-29] MEDS: Multivit/Ca/Min/Fe/FA 1 TAB TABLET PO SCH (09:52)
[2021-10-29] MEDS: Saliva Stimulant 44.3ml BOTTLE PO PRN ×3 (09:53→23:42)
[2021-10-29] MEDS: Methyl Salicylate/Menthol 85 APPL/85 GM TUBE TP PRN (15:10)
[2021-10-30] MEDS: *HR* Heparin 5,000 UNIT/ML VIAL SQ SCH ×3 (05:34→23:08)
[2021-10-30] MEDS: Ondansetron 4 MG/2 ML VIAL IVP PRN (05:35)
[2021-10-30] MEDS: Methyl Salicylate/Menthol 85 APPL/85 GM TUBE TP PRN ×2 (06:45→18:54)
[2021-10-30] MEDS: Saliva Stimulant 44.3ml BOTTLE PO PRN (06:49)
[2021-10-30] MEDS: Aspirin 81 MG TAB.CHEW PO SCH (10:22)
[2021-10-30] MEDS: Multivit/Ca/Min/Fe/FA 1 TAB TABLET PO SCH (10:22)
[2021-10-30] MEDS: Furosemide 20 MG/2 ML VIAL IVP SCH ×2 (10:22→23:08)
[2021-10-31 05:37] LABS: Basophils % 0.4 %; Eosinophils # 0.1 K/mcL (0.0-0.6); Eosinophils % 1.5 %; Hematocrit 38.4 % (35.3-44.9); Hemoglobin 12.9 g/dL (11.5-15.4); Immature Granulocytes % 0.4 % (0-4); Lymphocytes # 1.7 K/mcL (0.6-4.6); Lymphocytes % 25.6 %; Mean Corpuscular HGB Conc 33.6 g/dL (31.6-35.5); Mean Corpuscular Hemoglobin 28.7 pg (28.0-33.3); Mean Corpuscular Volume 85.3 fL (83.0-100.0); Mean Platelet Volume 9.6 fL (9.4-12.4); Monocytes # 0.7 K/mcL (0.0-1.3); Monocytes % 10.4 %; Neutrophils # 4.2 K/mcL (1.6-8.9); Platelet Count 237 K/mcL (140-400); Red Cell Distribution Width 14.1 % (11.5-14.5); Segmented Neutrophils % 61.7 %; White Blood Count 6.8 K/mcL (4.3-11.1)
[2021-10-31] MEDS: *HR* Heparin 5,000 UNIT/ML VIAL SQ SCH ×2 (05:55→13:11)
[2021-10-31 06:04] LABS: BUN/Creatinine Ratio 17 (6-26); Blood Urea Nitrogen 11 mg/dL (8-23); Calcium 9.2 mg/dL (8.6-10.3); Carbon Dioxide 29 mEq/L (23-29); Chloride 101 mEq/L (98-107); Glucose 207 mg/dL (70-105); Magnesium 1.7 mg/dL (1.6-2.6); Osmolality,Calculated 291 (280-300); Phosphorous 2.9 mg/dL (2.7-4.5); Potassium 3.4 mEq/L (3.5-5.1); Sodium 138 mEq/L (136-145)
[2021-10-31] MEDS: Furosemide 20 MG/2 ML VIAL IVP SCH (09:32)
[2021-10-31] MEDS: Multivit/Ca/Min/Fe/FA 1 TAB TABLET PO SCH (09:33)
[2021-10-31] MEDS: Aspirin 81 MG TAB.CHEW PO SCH (09:33)
[2021-10-31] MEDS: Methyl Salicylate/Menthol 85 APPL/85 GM TUBE TP PRN (11:05)
[2021-11-01] MEDS: Furosemide 20 MG/2 ML VIAL IVP SCH ×2 (00:34→09:53)
[2021-11-01] MEDS: *HR* Heparin 5,000 UNIT/ML VIAL SQ SCH ×5 (00:35→21:16)
[2021-11-01 06:20] LABS: BUN/Creatinine Ratio 23 (6-26); Blood Urea Nitrogen 14 mg/dL (8-23); Calcium 9.7 mg/dL (8.6-10.3); Carbon Dioxide 26 mEq/L (23-29); Chloride 102 mEq/L (98-107); Glucose 266 mg/dL (70-105); Osmolality,Calculated 294 (280-300); Sodium 137 mEq/L (136-145)
[2021-11-01] MEDS ORDERED: polyethylene glycoL 3350 17 GM POWD.PACK PO ONE (09:31)
[2021-11-01] MEDS: Multivit/Ca/Min/Fe/FA 1 TAB TABLET PO SCH (09:53)
[2021-11-01] MEDS: Aspirin 81 MG TAB.CHEW PO SCH (09:53)
[2021-11-01] MEDS ORDERED: Ringers Solution, Lactated 1,000 ML IVC SCH (22:00)
[2021-11-01 22:53] LABS: Bilirubin,Urine Negative (Negative); Blood,Urine Negative (Negative); Clarity,Urine Ex.Turbid (Clear); Color,Urine Yellow (Yellow); Glucose,Urine (UA) >=1000 mg/dL (Normal); Ketones,Urine Negative (Negative); Leukocyte Esterase,Urine Moderate (Negative); Mucus,Urine Few per lpf (None-Few); Nitrite,Urine Negative (Negative); PH,Urine 8.5 pH Units (5.0-8.0); Protein,Urine 50 mg/dL (Neg-Trace); Specific Gravity,Urine > 1.030 (1.010-1.025)
[2021-11-01 23:13] LABS: Amorphous Sediment,Urine Few per hpf (None-Few)
[2021-11-02] MEDS: cefTRIAXone 1,000 MG in 0.9 % Sodium Chloride Mini Bag 100 ML IVPB SCH (00:31)
[2021-11-02 05:05] LABS: BUN/Creatinine Ratio 25 (6-26); Blood Urea Nitrogen 13 mg/dL (8-23); Calcium 9.3 mg/dL (8.6-10.3); Carbon Dioxide 24 mEq/L (23-29); Chloride 103 mEq/L (98-107); Glucose 286 mg/dL (70-105); Osmolality,Calculated 293 (280-300); Potassium 4.4 mEq/L (3.5-5.1); Sodium 136 mEq/L (136-145)
[2021-11-02] MEDS: *HR* Heparin 5,000 UNIT/ML VIAL SQ SCH ×3 (05:10→22:33)
[2021-11-02] MEDS: Multivit/Ca/Min/Fe/FA 1 TAB TABLET PO SCH (09:01)
[2021-11-02] MEDS: Aspirin 81 MG TAB.CHEW PO SCH (09:01)
[2021-11-02] MEDS: Ondansetron 4 MG/2 ML VIAL IVP PRN (09:02)
[2021-11-02] MEDS ORDERED: polyethylene glycoL 3350 17 GM POWD.PACK PO ONE (09:43)
[2021-11-02] MEDS ORDERED: Iopamidol - 370 500 ML MLS PO ONE (11:02)
[2021-11-03] MEDS: cefTRIAXone 1,000 MG in 0.9 % Sodium Chloride Mini Bag 100 ML IVPB SCH (01:13)
[2021-11-03] MEDS: *HR* Heparin 5,000 UNIT/ML VIAL SQ SCH ×3 (06:38→19:55)
[2021-11-03] MEDS: Multivit/Ca/Min/Fe/FA 1 TAB TABLET PO SCH (09:16)
[2021-11-03] MEDS: Aspirin 81 MG TAB.CHEW PO SCH (09:17)
[2021-11-04] MEDS: cefTRIAXone 1,000 MG in 0.9 % Sodium Chloride Mini Bag 100 ML IVPB SCH (00:10)
[2021-11-04] MEDS: *HR* Heparin 5,000 UNIT/ML VIAL SQ SCH ×3 (06:06→20:37)
[2021-11-04] MEDS: Multivit/Ca/Min/Fe/FA 1 TAB TABLET PO SCH (08:03)
[2021-11-04] MEDS: Aspirin 81 MG TAB.CHEW PO SCH (08:03)
[2021-11-04] MEDS ORDERED: Nitroglycerin 0.4 MG TAB.SUBL SL PRN (08:13)
[2021-11-04] MEDS ORDERED: Multivit/Ca/Min/Fe/FA 1 TAB TABLET PO SCH (09:00)
[2021-11-04] MEDS ORDERED: *HR* HYDROcodone/Acet 5/325 mg TABLET PO PRN (15:34)
[2021-11-04] MEDS ORDERED: traZODone 50 MG TABLET PO SCH (21:00)
[2021-11-05] MEDS: cefTRIAXone 1,000 MG in 0.9 % Sodium Chloride Mini Bag 100 ML IVPB SCH (01:54)
[2021-11-05] MEDS: *HR* Heparin 5,000 UNIT/ML VIAL SQ SCH (05:50)
[2021-11-05 07:18] VITALS: BP 94/68; PULSE 72; TEMP 97.8; O2SAT 94
[2021-11-05] MEDS: Multivit/Ca/Min/Fe/FA 1 TAB TABLET PO SCH (10:11)
[2021-11-05] MEDS: Aspirin 81 MG TAB.CHEW PO SCH (10:11)
[2021-11-05 13:11] LABS: Influenza A PCR Negative (Negative); Influenza B PCR Negative (Negative); Resp. Syncytial Virus PCR Negative (Negative); SARS-CoV-2 by PCR (In House) Negative (Negative)
== END 2021-11-05 15:30 ==
LOC: 4WAOSI → SUATTDRO 10-27 02:13
PROVIDERS: ADMIT Internal Medicine; ATTEND Internal Medicine